=== PATIENT | female | born 1965 | race Caucasian/White ===

== ENCOUNTER 2016-08-16 16:23 | Observation (INO) | payer BC, OTHER ==
--- NOTE | 2016-08-16 16:32 | ER Document Report ---
ED Medical Screen (RME) - General Stated Complaint: ABDOMINAL PAIN Time seen by provider: 16:29 Mode of Arrival: Ambulatory Information source: Patient Notes: 51 yo female presents to ed or left lower abdominal pain since 1pm. Kidney stone in 90 and pain is similar. Was seen at [facility] and sent to the ED. - HPI Onset: This afternoon Onset/Duration: Sudden, Gradual Quality of pain: Sharp Severity: Severe Pain Level: 5 Associated Symptoms: Abdominal pain, Nausea Exacerbated by: Denies Relieved by: Denies Similar symptoms previously: No Recently seen / treated by doctor: Yes - Related Data Smoking: Non-smoker Frequency of alcohol use: None Drug Abuse: None Allergies/Adverse Reactions: No Known Allergies Allergy (Unverified 08/16/16 16:26)
[2016-08-16] MEDS ORDERED: ONDANSETRON 4 MG TAB.RAPDIS PO ONE (16:34)
[2016-08-16] MEDS ORDERED: OXYCODONE-ACETAMINOPHEN 5-325 MG TABLET PO ONE (16:34)
[2016-08-16 17:09] LABS: APPEARANCE,URINE CLEAR; BILIRUBIN,URINE NEGATIVE (NEGATIVE); GLUCOSE, URINE NEGATIVE (NEGATIVE); KETONES,URINE NEGATIVE (NEGATIVE); LEUKOCYTE ESTERASE,URINE NEGATIVE (NEGATIVE); NITRITE,URINE NEGATIVE (NEGATIVE); PROTEIN,URINE NEGATIVE (NEGATIVE); UROBILINOGEN,URINE NEGATIVE mg/dL (<2.0)
[2016-08-16 17:11] LABS: ABSOLUTE BASOPHILS # (AUTO) 0.1 10^3/uL (0.0-0.2); ABSOLUTE EOSINOPHILS # (AUTO) 0.1 10^3/uL (0.0-0.6); ABSOLUTE LYMPHOCYTES (AUTO) 1.2 10^3/uL (0.5-4.7); ABSOLUTE MONOCYTES (AUTO) 0.5 10^3/uL (0.1-1.4); ABSOLUTE NEUT (AUTO) 8.2 10^3/uL (1.7-8.2); BASOPHILS % (AUTO) 0.7 % (0-2); EOSINOPHILS % (AUTO) 1.3 % (0-6); HEMATOCRIT 43.9 % (36.0-47.0); HEMOGLOBIN 15.2 g/dL (12.0-15.5); HGB HCT DIFFERENCE 1.7; MEAN CORPUSCULAR HEMOGLOBIN 31.1 pg (27.0-33.4); MEAN CORPUSCULAR HGB CONC 34.6 g/dL (32.0-36.0); MEAN CORPUSCULAR VOLUME 90 fl (80-97); RED BLOOD COUNT 4.88 10^6/uL (3.72-5.28); RED CELL DISTRIBUTION WIDTH 12.8 % (11.5-14.0); WHITE BLOOD COUNT 10.1 10^3/uL (4.0-10.5)
[2016-08-16 17:28] LABS: ALANINE AMINOTRANSFERASE 44 U/L (9-52); ALBUMIN 4.8 g/dL (3.5-5.0); ALKALINE PHOSPHATASE 62 U/L (38-126); ANION GAP 12 (5-19); ASPARTATE AMINO TRANSFERASE 29 U/L (14-36); BILIRUBIN,TOTAL 0.6 mg/dL (0.2-1.3); BLOOD UREA NITROGEN 28 mg/dL (7-20); CALCIUM 9.9 mg/dL (8.4-10.2); CARBON DIOXIDE 28 mmol/L (22-30); CHLORIDE 102 mmol/L (98-107); CREATININE RESULT 0.88 mg/dL (0.52-1.25); GLUCOSE 102 mg/dL (75-110); POTASSIUM 4.6 mmol/L (3.6-5.0); SODIUM 141.7 mmol/L (137-145); TOTAL PROTEIN 7.4 g/dL (6.3-8.2)
[2016-08-16] MEDS ORDERED: NORMAL SALINE 1000 ML 1,000 ML IV ONE (18:44)
--- NOTE | 2016-08-16 18:45 | ER Document Report ---
ED GI/ - General Chief Complaint: Abdominal Pain Stated Complaint: ABDOMINAL PAIN Mode of Arrival: Ambulatory Information source: Patient Notes: Patient states that around 1:30 this afternoon she was sitting on the toilet and bent over and felt a pop and a sharp pain to the left inguinal area. Patient states the area became swollen and continue to be painful throughout the afternoon. Patient does report some mild nausea. TRAVEL OUTSIDE OF THE [place] IN LAST 30 DAYS: No - HPI Patient complains to provider of: Other - Left groin pain Onset: This afternoon Timing/Duration: Persistent, Worse Quality of pain: Sharp Pain Level: 4 Location: Other - Left inguinal area Vaginal bleeding (Compared to normal period): None Associated symptoms: Nausea. denies: Urinary hesitancy, Urinary frequency, Urinary retention, Urinary urgency, Vaginal discharge, Vomiting Exacerbated by: Movement Relieved by: Denies Similar symptoms previously: No Recently seen / treated by doctor: No - Related Data Allergies/Adverse Reactions: No Known Allergies Allergy (Unverified 08/16/16 16:26) Past Medical History - General Information source: Patient - Social History Smoking Status: Never Smoker Chew tobacco use (# tins/day): No Frequency of alcohol use: None Drug Abuse: None Occupation: school purchasing Lives with: Spouse/Significant other Family History: Reviewed & Not Pertinent Patient has suicidal ideation: No Patient has homicidal ideation: No - Medical History Medical History: Other - Fibromyalgia Musculoskeltal Medical History: Reports Hx Fibromyalgia Past Surgical History: Reports: Hx Breast Surgery, Hx Hysterectomy, Other - Tummy tuck Review of Systems - Review of Systems Constitutional: No symptoms reported. denies: Fever, Recent illness EENT: No symptoms reported Cardiovascular: No symptoms reported Respiratory: No symptoms reported. denies: Cough, Short of breath Gastrointestinal: Abdominal pain - Left inguinal tenderness with swelling, Nausea. denies: Diarrhea, Vomiting Genitourinary: No symptoms reported. denies: Dysuria Female Genitourinary: No symptoms reported Musculoskeletal: No symptoms reported. denies: Back pain Skin: No symptoms reported Hematologic/Lymphatic: No symptoms reported Neurological/Psychological: No symptoms reported Physical Exam - Vital signs Vitals: Temp Pulse Resp BP Pulse Ox 97.5 F 71 18 172/95 H 100 08/16/16 16:29 08/16/16 16:29 08/16/16 16:29 08/16/16 16:29 08/16/16 16:29 - General General appearance: Appears well, Alert In distress: None - Respiratory Respiratory status: No respiratory distress Chest status: Nontender Breath sounds: Normal Chest palpation: Normal - Cardiovascular Rhythm: Regular Heart sounds: S1 appreciated, S2 appreciated Murmur: No - Abdominal Inspection: Other - Patient with visible protruding bulge to left groin area Distension: No distension Bowel sounds: Normal Tenderness: Tender - Patient with tenderness of palpation of bulging area to left groin Organomegaly: No organomegaly - Back Back: Normal, Nontender. No: CVA tenderness - Extremities General upper extremity: Normal inspection, Normal ROM General lower extremity: Normal inspection, Normal ROM - Neurological Neuro grossly intact: Yes Cognition: Normal Orientation: AAOx4 [place] Coma Scale Eye Opening: Spontaneous [place] Coma Scale Verbal: Oriented [place] Coma Scale Motor: Obeys Commands Domenica Coma Scale Total: 15 - Psychological Associated symptoms: Normal affect, Normal mood - Skin Skin Temperature: Warm Skin Moisture: Dry Skin Color: Normal Course - Re-evaluation Re-evalutation: 08/16/16 18:[address] Davis regarding patient presentation, recommends consultation with surgeon prior to CT imaging. Consulted with Dr. Luna who agrees to come evaluate patient prior to ordering any CT imaging. 08/16/16 20:55 Dr Luna attempted reduction of hernia without success, recommends CT imaging with IV contrast only. 08/16/16 21:50 Dr Luna plans to admit pt, Dr Luna to bedside to discuss plan of care. - Vital Signs Vital signs: Temp Pulse Resp BP Pulse Ox 98.0 F 91 16 149/87 H 96 08/16/16 21:33 08/16/16 21:33 08/16/16 21:33 08/16/16 21:33 08/16/16 21:33 - Laboratory Result Diagrams: 08/16/16 16:45 08/16/16 16:45 Laboratory results interpreted by me: 08/16/16 08/16/16 08/16/16 16:45 16:45 16:45 Seg Neutrophils % 81.0 H Lymphocytes % 12.0 L BUN 28 H Urine Ascorbic Acid 40 H 08/16/16 20:56 Labs- Entire Visit 08/16/16 08/16/16 08/16/16 16:45 16:45 16:45 WBC 10.1 RBC 4.88 Hgb 15.2 Hct 43.9 MCV 90 MCH 31.1 MCHC 34.6 RDW 12.8 Plt Count 221 Seg Neutrophils % 81.0 H Lymphocytes % 12.0 L Monocytes % 5.0 Eosinophils % 1.3 Basophils % 0.7 Absolute Neutrophils 8.2 Absolute Lymphocytes 1.2 Absolute Monocytes 0.5 Absolute Eosinophils 0.1 Absolute Basophils 0.1 Sodium 141.7 Potassium 4.6 Chloride 102 Carbon Dioxide 28 Anion Gap 12 BUN 28 H Creatinine 0.88 Est GFR ( Amer) > 60 Est GFR (Non-Af Amer) > 60 Glucose 102 Calcium 9.9 Total Bilirubin 0.6 Direct Bilirubin 0.0 AST 29 ALT 44 Alkaline Phosphatase 62 Total Protein 7.4 Albumin 4.8 Urine Color YELLOW Urine Appearance CLEAR Urine pH 6.0 Ur Specific [place] 1.020 Urine Protein NEGATIVE Urine Glucose (UA) NEGATIVE Urine Ketones NEGATIVE Urine Blood NEGATIVE Urine Nitrite NEGATIVE Urine Bilirubin NEGATIVE Urine Urobilinogen NEGATIVE Ur Leukocyte Esterase NEGATIVE Urine WBC (Auto) 1 Urine RBC (Auto) 1 Squamous Epi Cells Auto 3 Urine Mucus (Auto) RARE Urine Ascorbic Acid 40 H 08/16/16 21:07 08/16/16 21:50 Discharge - Discharge Clinical Impression: Femoral hernia of left side Condition: Stable Disposition: ADMITTED INPATIENT Admitting Provider: Surgicalist Unit Admitted: Surgical Floor
[2016-08-16] MEDS ORDERED: MORPHINE SULFATE 10 MG/ML INJ IV ONE (20:19)
[2016-08-16] MEDS ORDERED: NORMAL SALINE 1000 ML 1,000 ML IV PRN (20:22)
[2016-08-16] MEDS ORDERED: FENTANYL CITRATE INJ/PF 100 MCG/2 ML AMPUL ONE (22:29)
[2016-08-16] MEDS ORDERED: MIDAZOLAM 2 MG/2 ML INJ ONE (22:29)
[2016-08-16] MEDS ORDERED: HYDROMORPHONE HCL INJ/PF 2 MG/ML AMPULE ONE ×2 (22:29)
[2016-08-16] MEDS ORDERED: EPHEDRINE SULFATE INJ 50 MG/1 ML AMPULE ONE (22:29)
[2016-08-16] MEDS ORDERED: DEXAMETHASONE SOD PHOSPHATE INJ 4 MG/1 ML VIAL ONE (22:29)
[2016-08-16] MEDS ORDERED: ONDANSETRON HCL INJ/PF 4 MG/2 ML SDV ONE (22:30)
[2016-08-16] MEDS ORDERED: PROPOFOL INJ 200 MG/20 ML VIAL IV ONE (22:30)
[2016-08-16] MEDS ORDERED: CEFAZOLIN INJ 1 GM VIAL ONE (23:08)
[2016-08-16] MEDS ORDERED: LIDOCAINE 1% INJ-PF (10 MG/ML) 30 ML SDV ONE (23:11)
[2016-08-16] MEDS ORDERED: LIDOCAINE 1% INJ-PF (10 MG/ML) 30 ML SDV INJ ONE ×2 (23:11)
[2016-08-16] MEDS ORDERED: DIPHENHYDRAMINE HCL 50 MG/ML VIAL IV PRN (23:47)
[2016-08-16] MEDS ORDERED: FENTANYL CITRATE INJ/PF 100 MCG/2 ML AMPUL IV PRN ×3 (23:47)
[2016-08-16] MEDS ORDERED: MEPERIDINE HCL/PF INJ 25 MG/1 ML DISP.SYRIN IV PRN (23:47)
[2016-08-16] MEDS ORDERED: PROMETHAZINE HCL INJ 25 MG/1 ML VIAL IV PRN (23:47)
--- NOTE | 2016-08-17 02:31 | Operative Report ---
Operative Report DATE OF SURGERY: 08/17/16 PREOPERATIVE DIAGNOSIS: Incarcerated left groin hernia POSTOPERATIVE DIAGNOSIS: Incarcerated left femoral hernia OPERATION: 1. Left femoral hernia repair with plug and patch. 2. Exploratory laparoscopy. SURGEON: HAL GEORGE ANESTHESIA: GA TISSUE REMOVED OR ALTERED: Hernia sac COMPLICATIONS: None noted ESTIMATED BLOOD LOSS: minimal INTRAOPERATIVE FINDINGS: Left femoral hernia with incarcerated small bowel. Small bowel was reduced back into the abdominal cavity and later inspected via exploratory laparoscopy and was viable with good color and peristalsis. PROCEDURE: The patient was brought to the operative suite and placed supine on the OR table. Timeout was performed. Antibiotics were administered. Padding and positioning was appropriate. Patient was induced intubated and maintained on general endotracheal anesthesia. Patient had Haskins catheter placed. Patient was prepped and draped in the normal sterile fashion. The skin in the left groin was infiltrated with local anesthetic. An oblique incision was made starting just lateral to the left pubic tubercle towards but not extending to the anterior superior iliac spine. Incision was made with 15 blade and continued down with electrocautery until the external oblique aponeurosis/top of the inguinal canal was identified. The external ring was identified. A small slit in the aponeurosis was made with a 15 blade.. Underlying structures were swept off of the external oblique aponeurosis, and the incision was extended to the external ring as well as laterally. The round ligament was dissected bluntly off the floor of the inguinal canal and dissected free of surrounding structures. At this point the dissection was directed inferiorly to the hernia sac. The hernia sac extended through the femoral canal onto the proximal medial thigh just inferior to the inguinal ligament. Starting from the top, the hernia sac was dissected free of surrounding structures. This dissection was carried to the base to identify the hernia sac emerging from the femoral canal. The hernia sac was then opened to discover small bowel. The small bowel appeared somewhat purple in appearance but was not clearly either viable or nonviable. The loop of bowel was manipulated repeatedly but could not be reduced. The hernia sac was then gradually dissected off of the bowel to the base, but the bowel could still not be dissected. The hernia sac was then excised to the base and sent to pathology. Finally at this point, the remaining millimeter stump of the base retracted into the abdominal cavity, and afterwards the loop of bowel was gradually reduced with manipulation. The repair of the hernia was then undertaken with a plug and patch technique. The large size synthetic/polypropylene mesh plug was placed into the femoral canal defect and sewn into place incorporating the mesh as well as the medially oriented fascial tissue above and below the defect, being careful to keep the stitch medial to avoid the vascular structures. Next the floor of the inguinal canal was reinforced with a traditional keyhole patch. Placement of the mesh was hindered by the nerve, specifically in the more medial aspect. The nerve was dissected proximally and distally then divided and discarded. The mesh was then placed with interrupted 2-0 Prolene sutures, with the 2 most medial sutures in the medial aspect anchored to the conjoined tendon and the Gurvinder ligament/most medial aspect of the shelving edge. The mesh was secured with 2 additional Prolene sutures, one superiorly and one inferiorly in a more lateral position. The splint tails of the keyhole mesh were trimmed to size. The round ligament was placed within the keyhole. The tails were tucked laterally under the external oblique aponeurosis. It should be noted that no direct or indirect hernia was discomfort, only the femoral hernia. The external oblique aponeurosis was reapproximated with 3-0 Vicryl running suture to reestablish the roof of the inguinal canal. The wound was closed in layers with interrupted 3-0 Vicryl in the subcutaneous fascia, then 4-0 Monocryl running in the subcuticular. The closed incision was treated with surgical glue. All lap needle sponge counts were correct. Given the questionable appearance of the bowel, the decision was made to perform exploratory laparoscopy to assess the bowel. By the time the hernia. With this completed and the patient was reprepped and redraped, the bowel had around an hour between being reduced and when it was inspected via laparoscopy. With the patient draped for laparoscopy, the skin above the umbilicus was infiltrated with local anesthetic. A 5 mm incision was made. Gallo Adson's were used to dissect down to the fascia grasped and elevated. Veress needle was placed. Satisfactory water drop test was performed. Low flow insufflation yielded low opening pressures. Insufflation was advanced to high flow and pneumoperitoneum of 15 mmHg was obtained. The trocar was placed and then the camera, confirming entry into the abdominal cavity without issues. 2 additional 5 mm ports were placed in the right and left mid abdomen under direct visualization after infiltration with local anesthetic. Transudate fluid was seen in the pelvis as well as the right upper quadrant. The repaired hernia defect was seen. The colon appeared normal. The small bowel was run from terminal ileum to ligament of Treitz. A 4 cm section of small bowel was visualized which had excellent color, peristalsis and minimal residual injection. I estimate this section to be in the proximal ileum or distal jejunum. The fluid from throughout the abdominal cavity was suctioned. The abdominal cavity was irrigated in the pelvis and in the right upper quadrant. The effluent was suctioned free and was clear. The left groin was again assessed and had one small oozing point from an area that had been stripped of peritoneum during the dissection of the hernia sac from the open approach. The small bleeding point was controlled with electrocautery. The trocar sites were inspected and were nonbleeding. The pneumoperitoneum was released. The instruments were removed. The laparoscopic incisions were closed with 4-0 Monocryl. All lap needle and sponge counts were correct. The patient was taken to recovery in stable condition having tolerated the procedure well.
[2016-08-17] MEDS ORDERED: INFLUENZA ADLT QUAD (36MOS+) 2016-17 VAC 0.5 ML SYR IM PRN (03:36)
[2016-08-17] MEDS ORDERED: OXYCODONE-ACETAMINOPHEN 5-325 MG TABLET PO PRN (04:07)
[2016-08-17] MEDS: LANSOPRAZOLE 15 MG TAB.RAP.DR PO SCH (05:35)
[2016-08-17] MEDS: POTASSI CL 20 MEQ/D5-1/2NS 1L 1,000 ML IV PRN ×2 (05:35→17:34)
[2016-08-17] MEDS: MORPHINE SULFATE 10 MG/ML INJ IV PRN ×2 (05:35→12:06)
[2016-08-17] MEDS: CITALOPRAM HYDROBROMIDE 20 MG TABLET PO SCH (08:52)
[2016-08-17] MEDS: ENOXAPARIN SODIUM INJ 40 MG/0.4 ML DISP.SYRIN SUBCUT SCH (08:53)
[2016-08-17] MEDS: DOCUSATE SODIUM 100 MG CAPSULE PO SCH ×2 (09:24→17:34)
[2016-08-17] MEDS: ONDANSETRON HCL INJ/PF 4 MG/2 ML SDV IV PRN ×2 (09:24→15:33)
--- NOTE | 2016-08-17 10:48 | PDOC H&P ---
History of Present Illness Admission Date/PCP: LUIS ALBERTO MIRELES History of Present Illness: ENRRIQUE QUESADA is a 51 year old white female who had was urinating on 2016 at approximately 12:15 PM when she felt a pop in her left groin and a feeling of a ligament rolling. Approximately 45 minutes later she had onset of dull left groin pain, 1/5. The pain progressed to 4/5 over the next hour and a half. The pain became sharper. She noticed a bulge in her left groin. The bulge was the size of the night. Her pain in her abdomen was more pronounced in a band across her lower abdomen. She also felt bloated and gassy. She has not been able to pass gas since this occurred. She had a bowel movement early this morning was normal. She also feels minor nausea but no vomiting. She denies fevers, chills, lightheadedness, dizziness, tremors, seizures, chest pain , shortness of breath, rash, leg swelling, itching, anxiety, palpitations, dysuria, blood in her urine, blood in her stools, urinary frequency, double vision, headaches, cough, runny nose. She works out daily, and changed her diet recently. She reports that since her diet change 2 weeks ago she's had minor constipation with an occasional feeling of not emptying completely. She reports prior partial hysterectomy; she still has her ovaries. She also underwent abdominoplasty. Past Medical History Renal/ Medical History: Reports: Nephrolithiasis Musculoskeltal Medical History: Reports: Fibromyalgia Psychiatric Medical History: Reports: Depression Past Surgical History Past Surgical History: Reports: Hysterectomy, Other - Bilateral breast augmentation. Abdominoplasty. Social History Information Source: Patient Lives with: Spouse/Significant other Smoking Status: Never Smoker Frequency of Alcohol Use: None Hx Recreational Drug Use: No Drugs: None Hx Prescription Drug Abuse: No Family History Family History: CAD, Hypertension, Other - Father had Lewy body disease, at age 61. Parental Family History Reviewed: Yes Children Family History Reviewed: Yes Sibling(s) Family History Reviewed.: Yes Medication/Allergy Home Medications: Citalopram Hydrobromide [Celexa 20 mg Tablet] 1 tab PO QAM 08/17/16 Tramadol HCl [Tramadol HCl ER] 1 tab PO QAM 08/17/16 Allergies/Adverse Reactions: No Known Allergies Allergy (Verified 08/17/16 04:20) Review of Systems All systems: reviewed and no additional remarkable complaints except as stated Physical Exam Vital Signs: Temp Pulse Resp BP Pulse Ox 98.0 F 91 16 149/87 H 96 08/16/16 21:33 08/16/16 21:33 08/16/16 21:33 08/16/16 21:33 08/16/16 21:33 Intake & Output 08/15/16 08/16/16 08/17/16 06:59 06:59 06:59 Weight 59.6 kg General appearance: PRESENT: mild distress Head exam: PRESENT: normocephalic Eye exam: PRESENT: EOMI Mouth exam: PRESENT: tongue midline Neck exam: ABSENT: JVD, lymphadenopathy, tenderness, thyromegaly Respiratory exam: PRESENT: clear to auscultation elpidio Cardiovascular exam: PRESENT: RRR GI/Abdominal exam: PRESENT: firm, guarding, rebound, tenderness - Extremely tender to palpation across her entire abdomen. She has a 4 x 6 cm swelling in her left groin which is exquisitely tender to palpation even after 6 mg morphine IV. Attempts to reduce it are unsuccessful, but resulted in the patient in extreme pain, crying, bracing., other - Well-healed scars from previous abdominoplasty. Extremities exam: ABSENT: pedal edema, tenderness Neurological exam: PRESENT: alert, oriented to person, oriented to place, oriented to time, oriented to situation Psychiatric exam: PRESENT: appropriate affect Skin exam: ABSENT: jaundice, rash Results Laboratory Results: 08/16/16 16:45 08/16/16 16:45 08/16/16 08/16/16 08/16/16 16:45 16:45 16:45 WBC 10.1 RBC 4.88 Hgb 15.2 Hct 43.9 MCV 90 MCH 31.1 MCHC 34.6 RDW 12.8 Plt Count 221 Seg Neutrophils % 81.0 H Lymphocytes % 12.0 L Monocytes % 5.0 Eosinophils % 1.3 Basophils % 0.7 Absolute Neutrophils 8.2 Absolute Lymphocytes 1.2 Absolute Monocytes 0.5 Absolute Eosinophils 0.1 Absolute Basophils 0.1 Sodium 141.7 Potassium 4.6 Chloride 102 Carbon Dioxide 28 Anion Gap 12 BUN 28 H Creatinine 0.88 Est GFR ( Amer) > 60 Est GFR (Non-Af Amer) > 60 Glucose 102 Calcium 9.9 Total Bilirubin 0.6 AST 29 ALT 44 Alkaline Phosphatase 62 Total Protein 7.4 Albumin 4.8 Urine Color YELLOW Urine Appearance CLEAR Urine pH 6.0 Ur Specific [place] 1.020 Urine Protein NEGATIVE Urine Glucose (UA) NEGATIVE Urine Ketones NEGATIVE Urine Blood NEGATIVE Urine Nitrite NEGATIVE Ur Leukocyte Esterase NEGATIVE Urine WBC (Auto) 1 Urine RBC (Auto) 1 Impressions: Pelvis Ultrasound 08/16/16 16:33 IMPRESSION: 3 cm complex cystic and solid area in the left groin, this may reflect a hernia given the clinical history. Additional evaluation with contrast CT is recommended to further characterize. Abdomen/Pelvis CT 08/16/16 20:19 IMPRESSION: 3.3 cm left femoral hernia which contains small bowel which appears incarcerated and the source for a developing small bowel obstruction. Surgical consultation is recommended. Status: Image reviewed by me Assessment & Plan - Diagnosis (1) Femoral hernia of left side with obstruction Is this a current diagnosis for this admission?: YesPlan: Acutely incarcerated left femoral hernia. Acute abdomen. Recommend proceeding to the OR for emergent repair. Discussed other non-recommended alternatives. We discussed a variety of possible findings and surgical options including bowel needing a resection, viable bowel not needing resection, tissue hernia repair versus mesh hernia repair, exploratory laparoscopy to evaluate questionable bowel, exploratory laparotomy with bowel resection. Questions were answered. We discussed risk of surgery including , heart attack, stroke, blood clots in the legs, blood clots in lungs, bleeding, infection, pneumonia, mesh infection, fistula, recurrence of the hernia, chronic pain, damage to surrounding structures including bladder, bowels, blood vessels, nerves, ureters. She understands and wishes to proceed. Strict nothing by mouth. IV antibiotics. IV fluids. Haskins catheter in OR. (2) Fibromyalgia Is this a current diagnosis for this admission?: YesPlan: Will restart Celexa when tolerating oral intake.
--- NOTE | 2016-08-17 12:50 | PDOC PROGRESS REPORT ---
Subjective Progress Note for:: 08/17/16 Subjective:: Patient denies vomiting, fever, abdominal pain. Physical Exam Vital Signs: Temp Pulse Resp BP Pulse Ox 98.2 F 91 15 100/59 L 95 08/17/16 11:33 08/17/16 11:33 08/17/16 11:33 08/17/16 11:33 08/17/16 11:33 Intake & Output 08/16/16 08/17/16 08/18/16 06:59 06:59 06:59 Intake Total 125 Balance 125 Weight 60.1 kg General appearance: PRESENT: no acute distress Head exam: PRESENT: atraumatic, normocephalic Respiratory exam: PRESENT: clear to auscultation elpidio GI/Abdominal exam: PRESENT: soft, tenderness - Incisional. ABSENT: distended, firm, guarding, hernia, rebound, rigid Rectal exam: PRESENT: deferred Neurological exam: PRESENT: alert, awake Results Impressions: Pelvis Ultrasound 08/16/16 16:33 IMPRESSION: 3 cm complex cystic and solid area in the left groin, this may reflect a hernia given the clinical history. Additional evaluation with contrast CT is recommended to further characterize. Abdomen/Pelvis CT 08/16/16 20:19 IMPRESSION: 3.3 cm left femoral hernia which contains small bowel which appears incarcerated and the source for a developing small bowel obstruction. Surgical consultation is recommended. Assessment & Plan - Diagnosis (1) Femoral hernia of left side Is this a current diagnosis for this admission?: YesPlan: Patient status post diagnostic laparoscopy, with repair of left inguinal hernia with mesh last night, plan: Out of bed ambulate, incentive spirometer, clear liquid diet, SCDs bilateral lower extremities.
[2016-08-17] MEDS ORDERED: PROMETHAZINE HCL INJ 25 MG/1 ML VIAL IV ONE (19:15)
[2016-08-17] MEDS ORDERED: PROMETHAZINE HCL INJ 25 MG/1 ML VIAL IV PRN (23:00)
[2016-08-18] MEDS: ONDANSETRON HCL INJ/PF 4 MG/2 ML SDV IV PRN (05:59)
[2016-08-18] MEDS: MORPHINE SULFATE 10 MG/ML INJ IV PRN (05:59)
[2016-08-18] MEDS: LANSOPRAZOLE 15 MG TAB.RAP.DR PO SCH (06:00)
[2016-08-18] MEDS: POTASSI CL 20 MEQ/D5-1/2NS 1L 1,000 ML IV PRN (06:00)
--- NOTE | 2016-08-18 09:15 | PDOC PROGRESS REPORT ---
Subjective Progress Note for:: 08/18/16 Subjective:: Patient is feeling better, denies vomiting, fever, abdominal pain, she had mild nausea last night, she tolerated clear liquid diet, she is passing gas but no bowel movement yet. Physical Exam Vital Signs: Temp Pulse Resp BP Pulse Ox 98.0 F 90 16 144/82 H 98 08/18/16 00:02 08/18/16 00:02 08/18/16 00:02 08/18/16 00:02 08/18/16 00:02 Intake & Output 08/17/16 08/18/16 08/19/16 06:59 06:59 06:59 Intake Total 125 2392 Output Total 800 Balance 125 1592 Weight 60.1 kg 62.9 kg General appearance: PRESENT: no acute distress, cooperative Head exam: PRESENT: atraumatic, normocephalic Respiratory exam: PRESENT: clear to auscultation elpidio GI/Abdominal exam: PRESENT: soft, other - Incision clean dry intact, abdomen is flat. ABSENT: distended, firm, guarding, hernia, rebound, rigid, tenderness Rectal exam: PRESENT: deferred Neurological exam: PRESENT: alert, awake Results Impressions: Pelvis Ultrasound 08/16/16 16:33 IMPRESSION: 3 cm complex cystic and solid area in the left groin, this may reflect a hernia given the clinical history. Additional evaluation with contrast CT is recommended to further characterize. Abdomen/Pelvis CT 08/16/16 20:19 IMPRESSION: 3.3 cm left femoral hernia which contains small bowel which appears incarcerated and the source for a developing small bowel obstruction. Surgical consultation is recommended. Assessment & Plan - Diagnosis (1) Femoral hernia of left side Is this a current diagnosis for this admission?: YesPlan: Patient status post diagnostic laparoscopy, repair of left femoral hernia with mesh postop day 1, she is recovering well, tolerated clear liquid diet, she had return of GI function, plan: IV lock, advance diet, pain control when necessary , ambulate 4 times per day, SCDs, anticipate discharge later today if tolerate diet
--- NOTE | 2016-08-18 09:16 | PDOC DISCHARGE SUMMARY ---
Discharge Summary (SDC) - Discharge Final Diagnosis: Status post diagnostic laparoscopy, left femoral hernia repair with mesh Date of Surgery: 08/17/16 Condition: Stable Treatment or Instructions: [facility] [address], [place] [address] Discharge Instructions: Laparoscopic Surgery 1. General Information: a. DO NOT DRIVE a car or operate dangerous machinery for 3-4 days or while taking narcotic pain pills. b. DO NOT consume alcohol, tranquilizers, sleeping medications or any non- prescribed medications for 24 hours unless approved by your doctor or as long as taking narcotic prescription medications. c. DO NOT make important decisions or sign any important papers for the first 24 hours after surgery. d. When discharged home the same day of surgery have a responsible person with you for the first night. 2. Activity Restrictions: _4 weeks. a. NO heavy lifting, straining abdominal muscles, bending over a lot, yard work, house work, or sports for [address] NOT [address] for 3-4 days or while taking . c. It is fine to go for walks, up and down steps, ride in a car. d. Elevate your head when sleeping/resting. 3. Treatment: a. You may shower 24 hours after surgery, no baths or swimming for 2 weeks. Remove band-aids or dressings before shower but leave paper strips (steri-strips ) on the skin to fall off on their own. If still on at postoperative visit they will be removed then. b. Drainage of fluid or blood is not unusual from an incision. If occurs, you can clean with peroxide and cotton ball daily and cover with dry gauze until the wound seals. c. If a lot of bleeding occurs, you can hold pressure with a gauze or cloth over the site for 10 minutes and it will usually stop. If bleeding continues you will need to call for possible evaluation in office or emergency room. 4. Medications: a. may be taken for pain as needed, one or two tablets every 4-6 hours. Stop the narcotic when able since you cannot take it and drive , and they cause constipation. You may switch to plain Tylenol, Advil or Aleve as you transition from the narcotic. Many adults find good pain relief with Advil 600-800 mg three times a day with meals. This can cause indigestion, ulcers, and kidney problems with long-term use. b. You should resume all normal medications unless a change is specified by your doctors. c. Antibiotic(s) if needed ( NONE) 5. Diet: Begin with clear liquids and may progress to your normal diet if not nauseated. No high fat, high protein foods the day of surgery. Normal diet 6. The following may occur after laparoscopic surgery: a. Shoulder or upper back ache from retained gas that should resolve in 1-2 days b. Soreness and bruising at incision sites will resolve with time. c. Scrotal swelling (labia in women) and bruising is often seen after hernia surgery. d. Sore throat e. Fatigue may last days to weeks. f. Difficulty urinating may occur and may need to come into emergency room for urinary catheter placement. 7. Notify Physician If: a. Worsening or pain not improved with pain medication b. Persistent nausea and vomiting c. Fever above 101 d. Persistent bleeding or swelling at operative site e. Unable to urinate and uncomfortable bladder 6-8 hours after surgery 8..Follow Up Care: a. Schedule a follow up appointment with your doctor for 2 weeks. In the event of any postoperative problems or questions or you may call the office during business hours or the On-Call physician evenings and weekends at [facility]. [facility] I understand the instructions for my postoperative care as described above and a copy has been given to me. Patient/Significant Other Witness Date Referrals: LUIS ALBERTO MIRELES INTERNATIONAL MANAGER [Primary Care Provider] - Follow up as needed Discharge Diet: As Tolerated Respiratory Treatments at Home: Deep Breathing/Coughing Discharge Activity: Activity As Tolerated, No Driving, No Lifting Over 10 Pounds , Slowly Increase Activity, No tub bath Home Care Assistance: None Needed Report the Following to Your Physician Immediately: Shortness of Breath, Nausea , Vomiting, Increase in Pain, Fever over 101 Degrees, Unusual Bleeding, Redness , Swelling, Warmth, Increased Soreness
[2016-08-18] MEDS: DOCUSATE SODIUM 100 MG CAPSULE PO SCH (09:36)
[2016-08-18] MEDS: CITALOPRAM HYDROBROMIDE 20 MG TABLET PO SCH (09:36)
[2016-08-18] MEDS: ENOXAPARIN SODIUM INJ 40 MG/0.4 ML DISP.SYRIN SUBCUT SCH (09:37)
[2016-08-18] MEDS ORDERED: TRAMADOL HCL 50 MG TABLET PO SCH (10:00)
[2016-08-18 14:00] VITALS: BP 129/81
--- NOTE | 2016-08-18 17:33 | DISCHARGE SUMMARY E ---
Discharge Summary NAME: ENRRIQUE QUESADA : 1965 AGE: 51Y ADMITTED: 08/16/2016 DISCHARGED: 08/18/2016 ADMISSION DIAGNOSIS: Incarcerated left femoral hernia. DISCHARGE DIAGNOSIS: Incarcerated left femoral hernia status post diagnostic laparoscopy with repair of left femoral hernia. HOSPITAL COURSE: Patient is a 51-year-old female who came to the hospital due to pain and nausea and vomiting. She was found to have incarcerated femoral hernia on the left side. Patient was taken to the operating room, underwent diagnostic laparoscopy and repair of left femoral hernia with mesh. The bowel was viable, and no need for resection. Postoperatively, the patient did well. She was started on diet which was tolerated. DISCHARGE INSTRUCTIONS: Patient will be discharged home with followup with Dr. Luna in the office in 1-2 weeks. Patient was instructed to avoid heavy lifting for 6 weeks. DICTATING PHYSICIAN: KYUNG CROWE M.D. [id number] PHY#: [id number] ID: [id number] JOB#: [id number] ACCT: [id number] cc:Jose DEMARCO PA >
== END 2016-08-18 14:40 | disposition home or self-care (01) ==
LOC: ER 16:23 → INTOOBSV 22:17 → EH 22:17 → 5 08-17 02:48
PROC: 0YU80JZ Supplement Left Femoral Region with Synthetic Substitute, Open Approach (ICD-10-PCS; principal; 2016-08-17)
DX: K41.30 Unilateral femoral hernia, with obstruction, without gangrene, not specified as recurrent (principal); M79.7 Fibromyalgia
CPT/HCPCS: 49553; 99285; 96361; 96374; 36415; 85025; 80053; 81001; 88302 ×2; 76857; 74177; G0378 ×3; C1781; J2250; J0690; J1100; J3490 ×2; S0119; J3010; J2270 ×3; J1650 ×2; J1170; J3480 ×2; J2550; J2405 ×3; J7030; J2704; 830

== ENCOUNTER → 2019-06-18 | Outpatient (CLI) | payer OTHER ==
--- NOTE | 2019-06-21 13:44 | WOMENS IMAGING REPORT ---
EXAM DESCRIPTION: 3D SCREENING MAMMO BILAT COMPLETED DATE/TIME: 06/18/2019 12:54 pm REASON FOR STUDY: Z12.31 SCREENING MAMMO Z12.31 ENCNTR SCREEN MAMMOGRAM FOR MALIGNANT NEOPLASM OF B RE COMPARISON: 10/27/2017. EXAM PARAMETERS: Standard craniocaudal and mediolateral oblique views of each breast recorded using digital acquisition and breast tomosynthesis. Additional "push-back craniocaudal and mediolateral ob lique images acquired. Read with the assistance of CAD. .[facility] - R2 Manager Of Employee Relations Version 9.2 LIMITATIONS: None. FINDINGS: IMPLANTS: Bilateral subpectoral implants. Findings present which are benign by mammographic criteria. No suspicious masses, calcifications or a rchitectural distortion. Benign mammographic findings may include one or more of the following: Smooth masses, popcorn/rim/co arse calcifications, asymmetries, post-procedure changes, and lesions with long-standing stability. IMPRESSION: BENIGN MAMMOGRAPHIC FINDINGS. BIRADS 2 BREAST DENSITY: c. The breasts are heterogeneously dense, which may obscure small masses. BIRAD: ASSESSMENT: 2 BENIGN FINDING(S) RECOMMENDATION: ROUTINE SCREENING COMMENT: The patient has been notified of the results by letter per MQSA requirements. Additional no tification policies are in place for contacting patient with suspicious or incomplete findings. Quality ID #[id number]: The [employer] recommends an annual screening mammogram for women aged 40 years or over. This facility utilizes a reminder system to ensure that all patients receive reminder letters, and/or direct phone calls for appointments. This includes reminders for routine scr eening mammograms, diagnostic mammograms, or other Breast Imaging Interventions when appropriate. Th is patient will be placed in the appropriate reminder system. TECHNICAL DOCUMENTATION: FINDING NUMBER: (1) ASSESSMENT: (1) JOB ID: [id number] [employer]- All Rights Reserved Reading location - IP/workstation name: [email or web address]
== END ==
LOC: WI 12:25
PROVIDERS: ATTEND Nurse Practitioner
DX: Z12.31 Encounter for screening mammogram for malignant neoplasm of breast (principal)
CPT/HCPCS: 77063; 77067